=== PATIENT | male | born 1970 | race Caucasian/White ===

== ENCOUNTER 2016-09-30 09:00 | Outpatient (CLI) | payer OTHER ==
[2015-12-23 16:42] VITALS: BP 124/84
[2016-09-30 10:00] LABS: eGFR (African) > 60; eGFR (Non-African) > 60
== END 2016-09-30 09:02 ==
LOC: LAB 09:00
PROVIDERS: ATTEND Family Medicine
DX: E11.9 Type 2 diabetes mellitus without complications (principal)
CPT/HCPCS: 36415; 80053; 80061; 82043; 83036

== ENCOUNTER 2017-03-29 10:00 | Outpatient (CLI) | payer OTHER ==
[2015-12-23 16:42] VITALS: BP 124/84
[2017-03-29 10:32] LABS: BASOPHILS % 0.8 (0.0-1.5); EOSINOPHILS % 1.4 % (0.0-6.8); MEAN CORPUSCULAR HEMOGLOBIN 27.1 pg (28.0-34.0); MEAN CORPUSCULAR VOLUME 85.8 fl (80.0-100.0); MONOCYTES % 3.2 % (0.0-11.0); NEUTROPHILS # 4.9 # k/uL (1.4-7.7)
[2017-03-29 10:46] LABS: eGFR (African) > 60; eGFR (Non-African) > 60
== END 2017-03-29 10:03 ==
LOC: LAB 10:00
PROVIDERS: ATTEND Family Medicine
DX: E11.9 Type 2 diabetes mellitus without complications (principal); R53.82 Chronic fatigue, unspecified; E66.9 Obesity, unspecified
CPT/HCPCS: 36415; 80053; 80061; 83036; 84403; 84436; 84479; 85025

== ENCOUNTER 2017-04-18 07:17 | Outpatient (CLI) | payer OTHER ==
[2015-12-23 16:42] VITALS: BP 124/84
== END 2017-04-18 07:40 ==
LOC: LAB 07:17
PROVIDERS: ATTEND Urology
DX: E29.1 Testicular hypofunction (principal)
CPT/HCPCS: 36415; 84403

== ENCOUNTER 2017-05-15 08:54 | Day surgery (SDC) | payer OTHER ==
[2015-12-23 16:42] VITALS: BP 124/84
--- NOTE | 2017-05-15 13:22 | GI Report ---
REFERRING PHYSICIAN: Dr. Black Gonzalez VISUAL ARTS TEACHER: Colin Porras MD PROCEDURE MEDICATION: Propofol as per anesthesia. INDICATIONS: A 46-year-old who is referred because of right upper quadrant pain and discomfort. He is a diabetic and is on metformin. He does have hyperlipidemia. He had an ultrasound on April 19, 2017, of his right upper quadrant. There were no stones in the gallbladder but the liver was 18 cm in length and diffuse increased hepatic steatosis noted. Patient has occasional heartburn. He denies vomiting. Again, he is referred for an endoscopy because of right upper quadrant discomfort. PROCEDURE PERFORMED: Endoscopy with biopsies. PROCEDURE: An ElectraTherm video endoscope was passed through the esophagus under direct visualization. He does have a hiatal hernia and does have distal esophagitis. Biopsies done at the GE junction. No obvious Jama's. Cardia of the stomach shows a sliding hernia. Fundus and body of antrum with gastritis. Biopsies taken in the antrum for pathology. Duodenal bulb and first and second part of the duodenum exam were normal. Patient tolerated the procedure well. FINDINGS: 1. Distal esophagitis. 2. Hiatal hernia. 3. Gastritis. RECOMMENDATIONS: 1. His PPI should be taken 30 minutes before a meal. 2. He needs to elevate the head of his bed. 3. With the diffuse steatosis noted on ultrasound, weight loss is crucial for this to improve. Ten percent body weight frequently will take fat out of the liver. 4. He needs to be on a kind of rigid diabetic diet, basically cutting out a large amount of the carbohydrates. 5. Sleep with the head of the bed elevated. cc: Dr. Black BLACKBURN
== END 2017-05-15 08:55 ==
LOC: OPSURG 08:54
PROVIDERS: ATTEND Internal Medicine Gastroenterology
DX: K29.70 Gastritis, unspecified, without bleeding (principal); K44.9 Diaphragmatic hernia without obstruction or gangrene; K21.0 Gastro-esophageal reflux disease with esophagitis; E11.9 Type 2 diabetes mellitus without complications; E78.5 Hyperlipidemia, unspecified; K76.0 Fatty (change of) liver, not elsewhere classified
CPT/HCPCS: J2001; J2704; J7120; 43239; S1016

== ENCOUNTER 2017-09-25 07:05 | Outpatient (CLI) | payer OTHER ==
[2015-12-23 16:42] VITALS: BP 124/84
[2017-09-25 08:21] LABS: eGFR (African) > 60; eGFR (Non-African) > 60
== END 2017-09-25 07:06 ==
LOC: LAB 07:05
PROVIDERS: ATTEND Family Medicine
DX: E11.9 Type 2 diabetes mellitus without complications (principal)
CPT/HCPCS: 36415; 80053; 83036

== ENCOUNTER 2017-11-02 12:31 | Outpatient (CLI) | payer OTHER ==
[2015-12-23 16:42] VITALS: BP 124/84
[2017-11-02 13:50] LABS: eGFR (Non-African) > 60
== END 2017-11-02 12:33 ==
LOC: RT 12:31
PROVIDERS: ATTEND Family Medicine
DX: R07.89 Other chest pain (principal); E11.9 Type 2 diabetes mellitus without complications; E03.9 Hypothyroidism, unspecified; E78.5 Hyperlipidemia, unspecified
CPT/HCPCS: 36415; 80053; 80061; 84443; 84484

== ENCOUNTER 2018-03-20 08:20 | Outpatient (CLI) | payer OTHER ==
[2015-12-23 16:42] VITALS: BP 124/84
[2018-03-20 08:49] LABS: BASOPHILS % 0.8 (0.0-1.5); EOSINOPHILS % 2.6 % (0.0-6.8); MEAN CORPUSCULAR HEMOGLOBIN 27.3 pg (28.0-34.0); MONOCYTES % 6.3 % (0.0-11.0)
[2018-03-20 10:33] LABS: eGFR (Non-African) > 60
== END 2018-03-20 08:22 ==
LOC: LAB 08:20
PROVIDERS: ATTEND Nurse Practitioner Family
DX: E11.8 Type 2 diabetes mellitus with unspecified complications (principal)
CPT/HCPCS: 36415; 80053; 80061; 83036; 85025